=== PATIENT | male | born 1980 | race Caucasian/White ===

== ENCOUNTER 2023-06-26 09:18 | Outpatient (REF) | payer BC, SELFPAY ==
[2023-06-26 15:33] LABS: Abs Immature Grans 0.01 10^3/uL (0.0-0.06); Absolute Basophil Count 0.03 10^3/uL (0.0-0.2); Absolute Eosinophil Count 0.21 10^3/uL (0.0-0.7); Absolute Lymphocyte Count 1.98 10^3/uL (1.2-3.4); Absolute Monocyte Count 0.25 10^3/uL (0.1-0.8); Absolute Neutrophil Count 2.09 10^3/uL (1.2-6.7); Basophils % 0.7 %; Eosinophils % 4.6 %; HCT 46.2 % (40.0-50.0); HGB 16.8 g/dL (13.5-17.5); Immature Grans % 0.2 %; Lymphocytes % 43.3 %; MCH 31.5 pg (27.0-33.0); MCHC 36.4 % (32.0-36.0); MCV 87 fL (80-95); MPV 11.6 fL (8.0-11.0); Monocytes % 5.5 %; Neutrophils % 45.7 %; Platelet Count 221 10^3/uL (130-400); RBC 5.34 10^6/uL (4.36-5.78); RDW-SD 37.7 fL; WBC 4.57 10^3/uL (4.4-10.8)
[2023-06-26 15:39] LABS: ESR < 1 mm/hr (0-15)
[2023-06-26 16:09] LABS: ALT 50 U/L (16-63); AST 19 U/L (15-37); Albumin 4.2 g/dL (3.4-5.0); Alkaline Phosphatase 70 U/L (46-116); BUN 13 mg/dL (7-18); CREATININE 1.1 mg/dL (0.70-1.30); Calcium 9.1 mg/dL (8.5-10.1); Calculated LDL 141 mg/dL (<100); Chloride 107 mmol/L (98-107); Cholesterol 205 mg/dL (<200); Estimated GFR 84.37 (mL/min/1.73m2); Glucose 110 mg/dL (74-106); HDL Cholesterol 50 mg/dL (40-60); Sodium 141 mmol/L (136-145); TSH (W/Ref FT4) 2.06 uIU/mL (0.36-3.74); Triglyceride 71 mg/dL (<150)
[2023-06-26 16:30] LABS: Bacteria Moderate HPF (Negative); C & S Indicated? Yes; Casts Negative LPF (Negative); Crystals Negative HPF (Negative); Epithelial Cells Rare HPF (Negative); Mucus Negative (Negative); RBC 0-2 HPF (0-2)
[2023-06-26 16:38] LABS: C-Reactive Protein < 0.50 mg/dL (<or=0.5)
[2023-06-27 10:39] LABS: Lyme Ab w Rflx to Lyme Confirm Negative (Negative)
[2023-06-27 12:58] LABS: dsDNA Ab, IgG <22.0 IU/mL (<27.0)
[2023-06-27 13:28] LABS: EBNA IgG Positive (Negative); EBV Interpretation (See Note); VCA IgG Positive (Negative); VCA IgM Negative (Negative)
[2023-06-27 13:44] LABS: ANA Interpretation Negative (Negative)
[2023-06-28 23:57] LABS: Anaplasma phagocytophilum Negative (Negative); B. miyamotoi PCR Negative (Negative); Babesia divergens/MO-1 Negative (Negative); Babesia duncani Negative (Negative); Babesia microti Negative (Negative); Ehrlichia chaffeensis Negative (Negative); Ehrlichia ewingii/canis Negative (Negative); Ehrlichia muris eauclairensis Negative (Negative)
== END 2023-06-26 09:19 | disposition home or self-care (01) ==
LOC: NCHCN 09:18
PROVIDERS: PCP Student in an Organized Health Care Education/Training Program; Visit Provider Student in an Organized Health Care Education/Training Program
DX: R59.0 Localized enlarged lymph nodes (principal); R31.9 Hematuria, unspecified; Z13.220 Encounter for screening for lipoid disorders
CPT/HCPCS: 80053; 80061; 85652; 87798; 81015; 84443; 85025; 86038; 86140; 86225; 86618; 86664; 86665; 87086

== ENCOUNTER 2023-09-25 14:54 | Outpatient (REF) | payer BC, SELFPAY ==
--- NOTE | 2023-09-25 08:50 | SKI_PTH ---
PATIENT: Sal Baron LOC: NCN #:[id number] AGE/SX: 43/M ROOM: RE09/25/[address]: Young Joshi : 1980 BED: DIS: 09/25/2023 SPEC #: [id number] RECD: 09/25/23 17:22 STATUS: ANDREI BAEZ #: [id number] SIGRID: 09/25/23 08:[address]: Young Joshi DEPT: Surgical Specimen RECD BY: Ginny Rivera Tissues: 1 - SKIN BIOPSY(SHAVE/PUNCH) Procedures: SKIN LEVEL 4 Comments: [id number]
== END 2023-09-25 14:55 | disposition home or self-care (01) ==
LOC: NCHCN 14:54
PROVIDERS: PCP Student in an Organized Health Care Education/Training Program; Visit Provider Student in an Organized Health Care Education/Training Program
DX: R22.31 Localized swelling, mass and lump, right upper limb (principal); L85.8 Other specified epidermal thickening
CPT/HCPCS: 88305